=== PATIENT | female | born 1975 | race Caucasian/White ===

== ENCOUNTER → 2020-12-28 | Day surgery (SDC) | payer OTHER ==
[~2020-12-28] MED LIST: ACETAMINOPHEN500 M1 PO; CLEOCIN300 MG PO; INSULIN PUMP NOVOLOG; LEVAQUIN500 MG PO; NAPROXEN500 MG PO; NORCO 5-325 TA1 EAC1 PO; ZOFRAN4 MG PO; ZYRTEC10 M2 PO; ZYRTEC10 MG PO
== END | disposition home or self-care (01) ==
LOC: FAS 06:15
DX: M24.611 Ankylosis, right shoulder (principal); M75.01 Adhesive capsulitis of right shoulder; K21.9 Gastro-esophageal reflux disease without esophagitis; G43.909 Migraine, unspecified, not intractable, without status migrainosus; Z20.822 Contact with and (suspected) exposure to COVID-19; Z90.710 Acquired absence of both cervix and uterus; Z79.4 Long term (current) use of insulin; Z79.899 Other long term (current) drug therapy; Z98.890 Other specified postprocedural states; Z90.49 Acquired absence of other specified parts of digestive tract
CPT/HCPCS: 97161; 97530-GP; J1100; J2250; J2550; J2704; J2795; J7120